=== PATIENT | female | born 2000 | race African-American/Black ===

== ENCOUNTER 2025-03-11 16:14 | Outpatient (CLI) | payer MEDICAID, SELFPAY | END 2025-03-11 16:15 | disposition home or self-care (01) | PROVIDERS: PCP Family Medicine; Visit Provider Physician Assistant Medical | DX: Z00.00 Encounter for general adult medical examination without abnormal findings (principal); R03.0 Elevated blood-pressure reading, without diagnosis of hypertension; D64.9 Anemia, unspecified; R82.90 Unspecified abnormal findings in urine; Z86.39 Personal history of other endocrine, nutritional and metabolic disease; Z13.21 Encounter for screening for nutritional disorder; Z11.4 Encounter for screening for human immunodeficiency virus [HIV]; Z11.59 Encounter for screening for other viral diseases | CPT/HCPCS: 80061; 82088; 82306; 82607; 82728; 83540; 83550; 84244; 86703; 86803; 87086 ==